=== PATIENT | female | born 1980 | race Caucasian/White ===

== ENCOUNTER 2019-03-25 15:30 | Inpatient (IN) | payer OTHER ==
[~2019-03-25] VITALS: Ht 167.6 cm; Wt 106.1 kg
[2019-03-31] MEDS ORDERED: KEFLEX500 MG PO (02:13)
[2019-03-31] MEDS ORDERED: PRENATAL TABLE1 EAC1 PO (02:13)
== END 2019-04-02 14:56 | disposition home or self-care (01) | DRG 807 ==
LOC: LDR 03-31 01:15 → OB/GYN 03-31 01:15
PROVIDERS: ADMIT Specialist
PROC: 10E0XZZ Delivery of Products of Conception, External Approach (ICD-10-PCS; principal; 2019-03-31)
PROC: 0HQ9XZZ Repair Perineum Skin, External Approach (ICD-10-PCS; 2019-03-31)
PROC: 3E033VJ Introduction of Other Hormone into Peripheral Vein, Percutaneous Approach (ICD-10-PCS; 2019-03-31)
PROC: 4A1HXCZ Monitoring of Products of Conception, Cardiac Rate, External Approach (ICD-10-PCS; 2019-03-31)
DX: O70.0 First degree perineal laceration during delivery (principal); Z37.0 Single live birth; Z3A.38 38 weeks gestation of pregnancy; Z22.330 Carrier of Group B streptococcus